=== PATIENT | female | born 1985 | race Caucasian/White ===

== ENCOUNTER → 2016-09-02 | Outpatient (REF) | payer OTHER | LOC: M SFHCLERA 09:41 | PROVIDERS: ATTEND Nurse Practitioner Family | DX: R39.9 Unspecified symptoms and signs involving the genitourinary system (principal) ==

== ENCOUNTER → 2016-10-14 | Outpatient (CLI) | payer OTHER ==
[2016-10-14 13:22] LABS: BASO % 0.4 % (0.0-1.0); EOS # 0.1 K/mm3 (0.0-0.50); LARGE UNSTAINED CELL # 0.1 K/mm3 (0.0-0.4); LARGE UNSTAINED CELL % 1.5 % (0.0-4.0); LYMPH # 1.5 K/mm3 (1.5-6.5); LYMPH % 23.6 % (24.0-44.0); MEAN CORPUSCULAR HEMOGLOBIN 29.2 pg (27.0-33.0); MEAN CORPUSCULAR VOLUME 88.5 fl (80.0-96.0); MONO # 0.4 K/mm3 (0.0-0.8); MONO % 6.7 % (0.0-5.0); NEUTROPHILS # 4.2 K/mm3 (1.8-7.7); NEUTROPHILS % 66.8 % (36.0-66.0); PLATELET COUNT, AUTOMATED 260 k/mm3 (150-450); RED CELL DISTRIBUTION WIDTH 11.9 % (11.5-14.5); WHITE BLOOD COUNT 6.2 K/mm3 (4.0-10.0)
[2016-10-14 14:26] LABS: HIV SCRN NEGATIVE (NEGATIVE); HIV SCRN1 NEGATIVE (NEGATIVE)
[2016-10-14 14:27] LABS: CONTROL LINE INT CTR LINE PRESENT
[2016-10-15 10:58] LABS: HBsAg Prenatal NEGATIVE (NEGATIVE)
== END ==
LOC: M SMT 10:51
PROVIDERS: ATTEND Advanced Practice Midwife
DX: Z34.81 Encounter for supervision of other normal pregnancy, first trimester (principal)

== ENCOUNTER → 2016-10-29 | Outpatient (REF) | payer OTHER | LOC: M LAB REF 13:02 | PROVIDERS: ATTEND Advanced Practice Midwife | DX: Z36 Encounter for antenatal screening of mother (principal); Z3A.00 Weeks of gestation of pregnancy not specified ==

== ENCOUNTER → 2016-11-07 | Outpatient (CLI) | payer OTHER | LOC: M SMT 10:07 | PROVIDERS: ATTEND Advanced Practice Midwife | DX: Z36 Encounter for antenatal screening of mother (principal); Z3A.00 Weeks of gestation of pregnancy not specified ==

== ENCOUNTER → 2017-01-08 | Outpatient (CLI) | payer OTHER ==
--- NOTE | 2017-01-09 02:55 | REP ---
Clinical: Anatomical evaluation. Comparison: None . Findings: Examination demonstrates a single live intrauterine in variable presentation. motion is identified by technologist. Placenta is noted anteriorly and grade zero without evidence for placenta previa or abruption. Amniotic fluid volume is normal. Cervix measures 3.9 cm in length and appears closed. No evidence for nuchal cord. Gestational age by LMP 19 weeks 4 days with DARRION 05/31/2017 . Gestational age by current measurements 20 weeks 2 days with DARRION 05/26/2017 . FHR equals 153 beats per minute. BPD 4.7 cm 20 weeks 1 day HC 17.2 cm 19 weeks 5 days AC 15.1 cm 20 weeks 2 days FL 3.4 cm 20 weeks 4 days HL 3.2 cm 20 weeks 4 days HC/AC ratio 1.14 Estimated weight 349 grams ( 75th percentile). Anatomical assessment demonstrates normal structures including cranium, choroid plexus, cavum, cerebellum/posterior fossa, facial features, lungs, diaphragm, stomach, cord insertion/three-vessel cord, kidneys/bladder, spine, and extremities. Impression: 1. Single live intrauterine in variable presentation demonstrating appropriate interval growth. 2. Limited evaluation of the heart and ventricular outflow tracts may warrant reevaluation and follow-up. Remainder of the anatomical assessment is complete. Signed by Isak Galvez MD 01/09/2017 02:47 A
== END ==
LOC: M RAD 10:38
PROVIDERS: ATTEND Advanced Practice Midwife
DX: Z36 Encounter for antenatal screening of mother (principal); Z3A.20 20 weeks gestation of pregnancy

== ENCOUNTER → 2017-01-27 | Outpatient (CLI) | payer OTHER | LOC: M SMT 09:06 | PROVIDERS: ATTEND Specialist | DX: Z36 Encounter for antenatal screening of mother (principal); Z3A.23 23 weeks gestation of pregnancy ==

== ENCOUNTER → 2017-03-05 | Outpatient (CLI) | payer OTHER ==
[~2017-03-05] MED LIST: ACET50TA PO; ANUS2.5C2 TOP; IBUP-1114 PO; PRENTAB55 PO
[2017-03-05 14:16] LABS: BASO % 0.4 % (0.0-1.0); EOS # 0.1 K/mm3 (0.0-0.50); EOS % 0.8 % (0.0-3.0); LARGE UNSTAINED CELL # 0.1 K/mm3 (0.0-0.4); LARGE UNSTAINED CELL % 0.9 % (0.0-4.0); LYMPH # 1.3 K/mm3 (1.5-6.5); LYMPH % 17.2 % (24.0-44.0); MEAN CORPUSCULAR HEMOGLOBIN 31.6 pg (27.0-33.0); MEAN CORPUSCULAR HGB CONC 33.8 g/dl (32.0-36.5); MEAN CORPUSCULAR VOLUME 93.4 fl (80.0-96.0); MONO # 0.5 K/mm3 (0.0-0.8); MONO % 7.1 % (0.0-5.0); NEUTROPHILS # 5.1 K/mm3 (1.8-7.7); NEUTROPHILS % 73.6 % (36.0-66.0); PLATELET COUNT, AUTOMATED 226 k/mm3 (150-450); RED CELL DISTRIBUTION WIDTH 12.7 % (11.5-14.5)
== END ==
LOC: M SMT 09:52
PROVIDERS: ATTEND Specialist
DX: Z36 Encounter for antenatal screening of mother (principal); Z3A.00 Weeks of gestation of pregnancy not specified

== ENCOUNTER 2017-06-02 19:31 | Inpatient (IN) | payer OTHER ==
[~2017-06-02] VITALS: Ht 167.6 cm; Wt 72.0 kg
[2017-06-02] MEDS ORDERED: PRENTAB55 PO (20:14)
[2017-06-02] MEDS ORDERED: OXYTOCIN 30 UNITS IN 0.9% NaCl 500ML IV BAG (J2590) As Ordered ONE (20:18)
[2017-06-02 20:20] LABS: MEAN CORPUSCULAR HEMOGLOBIN 31.5 pg (27.0-33.0); MEAN CORPUSCULAR HGB CONC 34.7 g/dl (32.0-36.5); MEAN CORPUSCULAR VOLUME 90.5 fl (80.0-96.0); PLATELET COUNT, AUTOMATED 191 10^3/uL (150-450); RED CELL DISTRIBUTION WIDTH 12.2 % (11.5-14.5); WHITE BLOOD COUNT 12.3 10^3/uL (4.0-10.0)
[2017-06-02 21:34] VITALS: BP 135/78
[2017-06-02 21:49] VITALS: BP 141/82
[2017-06-02 21:52] LABS: CORD GAS ABE V -7.3; CORD GAS HCO3 V 18.1 MEQ/L; CORD GAS O2 SAT V 88.6 %; CORD GAS PCO2 V 37.1 mmHg; CORD GAS PH V 7.307 UNITS; CORD GAS PO2 V 47.7 mmHg; CORD GAS SBC V 18.5 MEQ/L; CORD GAS TCO2 V 19.3 MEQ/L
[2017-06-02] MEDS ORDERED: OXYTOCIN DRIP 30 UNITS in APPROPRIATE DILUENT 1 EA IV SCH (21:52)
[2017-06-02] MEDS ORDERED: METHYLERGONOVINE MALEATE 0.2 MG TAB PO PRN (22:00)
[2017-06-02] MEDS ORDERED: MOM 30ML SUSPENSION UDC PO PRN (22:00)
[2017-06-02] MEDS ORDERED: DOCUSATE SODIUM 100 MG CAP PO PRN (22:00)
[2017-06-02] MEDS ORDERED: DIBUCAINE 1% OINTMENT 30GM TOP PRN (22:00)
[2017-06-02] MEDS ORDERED: MEASLES,MUMPS,RUBELLA VACCINE INJ (MMR-II) (90707) SC SCH (22:00)
[2017-06-02] MEDS ORDERED: LIDOCAINE 1% MDV INJ 50 ML VIAL INFIL ONE (22:00)
[2017-06-02] MEDS ORDERED: ACETAMINOPHEN 500 MG TAB PO PRN (22:00)
[2017-06-02] MEDS ORDERED: ANUSOL HC CREAM 30GM TOP PRN (22:00)
[2017-06-02] MEDS ORDERED: RHOGAM 300 MCG (1500 IU) INJ (J2790) IM SCH (22:00)
[2017-06-02 22:04] VITALS: BP 124/69
[2017-06-02 22:19] VITALS: BP 132/66
[2017-06-02] MEDS: METHYLERGONOVINE MALEATE 0.2 MG TAB PO SCH (22:25)
[2017-06-02] MEDS: IBUPROFEN 800 MG TAB PO PRN (22:29)
--- NOTE | 2017-06-02 22:30 | IPNPDOC ---
Text Note Date of Service The patient was seen on 06/02/17. NOTE HISTORY & PHYSICAL EXAMINATION DATE OF ADMISSION: 06/02/2017 31-year-old, 2, para 1, at 40-2/7 weeks gestation by last menstrual period of 08/24/2016 for an estimated date of delivery of 05/31/2017 presents with complaints of contractions during the day, becoming stronger since 5 PM. Upon evaluation, she is 10 cm, 100 % effaced, 0 station. She reports active movement. Denies loss of fluid or bleeding. Sono at 9 weeks 5 days confirmed her due date. Prepregnancy weight was 125. Total weight gain 33 pounds. She has been normotensive through the . Last office visit was at 40 weeks. 2 days on June 02. has been uncomplicated. Anatomy scan within normal limits OB HISTORY: September 2014, normal spontaneous vaginal delivery, viable male, 8 pounds at 40 weeks. was complicated by gestational diabetes. was in the NICU for 2 days for respiratory difficulties ALLERGIES: None. MEDICAL/SURGICAL HISTORY: Gestational diabetes and dental surgery FAMILY HISTORY: Diabetes, hypertension, heart disease, depression and hypothyroidism. SOCIAL HISTORY: . Father of the babyJoe is present at the bedside and supportive. Denies tobacco, alcohol or drugs. No history sexually transmitted infections OBJECTIVE: Labs are A+, antibody negative. Initial hemoglobin and hematocrit 12.2 and 37.1 with platelets of 260. Rubella immune. VDRL, hepatitis B, hepatitis C, HIV, gonorrhea, chlamydia all negative. Genetic screening declined. 1 hour GCT 111. Group B strep bacteriuria. VITAL SIGNS: Stable. She is coping well. Breathing with contractions.. Abdomen is soft, gravid, nontender, longitudinal lie, vertex by Ifeanyi. Contractions 2-3 minutes apart, 60+ seconds, strong to palpation. heart 125, moderate variability with accelerations, category 1 tracing. Sterile vaginal exam: 10 cm, 100 % effaced, 0 station, intact membranes and cephalic. ASSESSMENT: 31-year-old, 2, para 1, at 40 weeks. 2 days gestation, in active labor, category 1 tracing. Delivery is imminent PLAN: Admit. Group B strep prophylaxis not provided due to imminent delivery .Anticipate normal spontaneous vaginal . VS,Fishbone, I+O VS, Fishbone, I+O Laboratory Tests 06/02/17 20:10 Red Blood Count 3.91 L, Mean Corpuscular Volume 90.5, Mean Corpuscular Hemoglobin 31.5, Mean Corpuscular Hemoglobin Concent 34.7, Red Cell Distribution Width 12.2 Karyn Varner CNM Jun 02, 2017 22:18
[2017-06-02 22:34] VITALS: BP 122/65
--- NOTE | 2017-06-02 22:39 | IPNPDOC ---
Text Note Date of Service The patient was seen on 06/02/17. NOTE Delivery Note Date of Service 06/02/2017 31 year old 2, now para 2, spontaneous onset of labor at 40 weeks and 2 days. Spontaneous rupture of membranes June 02 at 1945, clear, small amount. Utilized breathing for labor coping. Fully dilated upon arrival at 1942. Slow at 2100. Perineum was infiltrated with lidocaine at 2109. Midline episiotomy was cut at 2118. Head, delivered at 2120. Viable male delivered TOÑA restituted to LOT with out difficulty at 2121. Spontaneous respirations with stimulation. Transitioned on maternal abdomen. Cord doubly clamped and cut by father of the baby under my direction once pulsations ceased. scores 8 and 9. Venous cord gas and umbilical cordblood collection kit obtained. Placenta Negrete intact with 3-vessel cord and trailing membranes at 2129. Fundus firmed with massage and intravenous pitocin bolus. Estimated blood loss 350. Perineum, cervix and vagina inspected. Midline episiotomy repaired with 3- 0 Vicryl Rapide after additional lidocaine infiltration. Sponge, sharp and instrument count correct. weight 9 pounds 11 ounces, 4400 grams. Parents are undecided about , name. Venous cord gas 7.307 with -7.3, base excess VS,Fishbone, I+O VS, Fishbone, I+O Laboratory Tests 06/02/17 20:10 Red Blood Count 3.91 L, Mean Corpuscular Volume 90.5, Mean Corpuscular Hemoglobin 31.5, Mean Corpuscular Hemoglobin Concent 34.7, Red Cell Distribution Width 12.2 Karyn Varner CNM Jun 02, 2017 22:39
[2017-06-03 00:02] VITALS: BP 118/75
[2017-06-03] MEDS ORDERED: OXYTOCIN INJ 10 UNITS/ML VIAL (J2590) As Ordered ONE (04:17)
[2017-06-03] MEDS: METHYLERGONOVINE MALEATE 0.2 MG TAB PO SCH ×3 (04:30→18:44)
[2017-06-03] MEDS: IBUPROFEN 800 MG TAB PO PRN ×3 (05:50→18:45)
[2017-06-03 05:53] VITALS: BP 129/76
--- NOTE | 2017-06-03 06:56 | IPNPDOC ---
Text Note Date of Service The patient was seen on 06/03/17. NOTE Feels well. Adequate pain management. on demand. Voiding 98.5, 129/76 Breasts soft, nipples intact Fundus firm, NT, down 1 FB Lochia rubra light without odor Perineum well approximated without edema Legs negative. A: PPD #1, early nursing going well P: Routine care. Anticipate D/C once NB blood cultures are complete VS,Fishbone, I+O VS, Fishbone, I+O Laboratory Tests 06/02/17 20:10 Red Blood Count 3.91 L, Mean Corpuscular Volume 90.5, Mean Corpuscular Hemoglobin 31.5, Mean Corpuscular Hemoglobin Concent 34.7, Red Cell Distribution Width 12.2 Vital Signs Date Time Temp Pulse Resp B/P (MAP) Pulse Ox O2 Delivery O2 Flow Rate FiO2 06/03/17 05:53 98.5 61 18 129/76 (93) Karyn Varner CNM Jun 03, 2017 06:56
[2017-06-03] MEDS: PRENATAL VITAMINS CHEWABLE TABLET PO SCH (10:49)
[2017-06-03 17:55] VITALS: BP 110/59
[2017-06-04] MEDS: IBUPROFEN 800 MG TAB PO PRN ×2 (01:31→10:42)
[2017-06-04 05:53] VITALS: BP 103/50
[2017-06-04] MEDS ORDERED: ANUS2.5C2 TOP (07:25)
[2017-06-04] MEDS ORDERED: IBUP-1114 PO (07:25)
[2017-06-04] MEDS ORDERED: ACET50TA PO (07:25)
[2017-06-04] MEDS ORDERED: INFLUENZA QUADRIVALENT PF VACCINE 0.5ML SYRINGE (90686) IM ONE (09:00)
[2017-06-04] MEDS ORDERED: ADACEL/BOOSTRIX VACCINE (DIPHTH/PERTUSS/ACELL/TETANUS)0.5ML SYR (90715) IM ONE (09:00)
[2017-06-04] MEDS: PRENATAL VITAMINS CHEWABLE TABLET PO SCH (10:42)
== END 2017-06-04 14:30 | disposition home or self-care (01) | DRG 775 ==
LOC: M LDO 19:31 → M LDI 19:44 → M OBS 06-03
PROVIDERS: ADMIT Advanced Practice Midwife; ATTEND Advanced Practice Midwife
PROC: 10E0XZZ Delivery of Products of Conception, External Approach (ICD-10-PCS; principal; 2017-06-02)
PROC: 0W8NXZZ Division of Female Perineum, External Approach (ICD-10-PCS; 2017-06-02)
DX: O48.0 Post-term pregnancy (principal); Z3A.40 40 weeks gestation of pregnancy; Z37.0 Single live birth

== ENCOUNTER → 2018-01-12 | Outpatient (REF) | payer OTHER ==
[2018-01-15 14:16] LABS: HPV HYBRID CAPTURE II Negative (Negative)
== END ==
LOC: M LAB REF 09:33
DX: Z12.4 Encounter for screening for malignant neoplasm of cervix (principal)
CPT/HCPCS: G0123